=== PATIENT | male | born 2005 | race African-American/Black ===

== ENCOUNTER 2024-03-12 15:56 | Emergency (ER) | payer OTHER ==
[~2024-03-12] VITALS: Ht 182.9 cm; Wt 84.0 kg
[2024-03-12 16:00] VITALS: O2SAT 100
[2024-03-12] MEDS ORDERED: BACITRACIN ZINC OINT UDPKT TOP ONE (16:15)
[2024-03-12] MEDS ORDERED: TETANUS, DIPHTHERIA, PERTUSSIS VAC/PF 0.5ML (>10YR OLD) IM ONE (16:15)
[2024-03-12] MEDS ORDERED: LIDOCAINE HCL/PF 1% 10 MG/ML 5ML VIAL INFIL ONE (16:15)
[2024-03-12] MEDS ORDERED: LIDOCAINE HCL/PF 1% 10 MG/ML 5ML VIAL INFIL NR (18:30)
[2024-03-12] MEDS: TETANUS, DIPHTHERIA, PERTUSSIS VAC/PF 0.5ML (>10YR OLD) IM ONE (19:18)
[2024-03-12] MEDS: BACITRACIN ZINC OINT UDPKT TOP NR (19:26)
[2024-03-12 19:36] VITALS: BP 100/67; PULSE 86; RESP 18; TEMP 37.05852; O2SAT 100
== END 2024-03-12 19:41 | disposition home or self-care (01) ==
LOC: ER 15:56
DX: S61.412A Laceration without foreign body of left hand, initial encounter (principal); R51.9 Headache, unspecified; Y04.0XXA Assault by unarmed brawl or fight, initial encounter; Y93.89 Activity, other specified; Y92.89 Other specified places as the place of occurrence of the external cause; Y99.8 Other external cause status
CPT/HCPCS: 73130; 70450; 70486; 90715; 12001; 90471; 99285; Z7610 ×3

== ENCOUNTER 2024-03-19 13:23 | Emergency (ER) | payer SELFPAY ==
[~2024-03-19] VITALS: Ht 182.9 cm; Wt 71.0 kg
[2024-03-19 13:31] VITALS: O2SAT 99
[2024-03-19 13:46] VITALS: BP 115/65; PULSE 66; RESP 18; TEMP 97.1; O2SAT 99
== END 2024-03-19 20:29 | disposition left against medical advice (07) ==
LOC: ER 13:23
DX: Z48.02 Encounter for removal of sutures (principal); Z53.21 Procedure and treatment not carried out due to patient leaving prior to being seen by health care provider